=== PATIENT | male | born 1960 | race Caucasian/White ===

== ENCOUNTER → 2019-10-28 12:14 | Outpatient (BNVA) | payer OTHER, SELFPAY | PROVIDERS: PCP Nurse Practitioner Family; Visit Provider Nurse Practitioner Family | DX: E11.9 Type 2 diabetes mellitus without complications (principal); Z12.5 Encounter for screening for malignant neoplasm of prostate; I10 Essential (primary) hypertension; Z00.00 Encounter for general adult medical examination without abnormal findings; E78.5 Hyperlipidemia, unspecified; Z53.20 Procedure and treatment not carried out because of patient's decision for unspecified reasons; Z72.0 Tobacco use | CPT/HCPCS: 80053; 80061; 82044; 83036; 84443; 85025; G0103 ==

== ENCOUNTER → 2021-08-30 08:17 | Outpatient (BNVA) | payer BC, SELFPAY | PROVIDERS: PCP Nurse Practitioner; Visit Provider Nurse Practitioner | DX: C25.9 Malignant neoplasm of pancreas, unspecified (principal) | CPT/HCPCS: 80053; 85025; 86301 ==

== ENCOUNTER → 2021-10-18 09:06 | Outpatient (BNVA) | payer BC, SELFPAY | PROVIDERS: PCP Nurse Practitioner; Visit Provider Nurse Practitioner | DX: E11.65 Type 2 diabetes mellitus with hyperglycemia (principal); Z79.4 Long term (current) use of insulin; F41.1 Generalized anxiety disorder; I10 Essential (primary) hypertension | CPT/HCPCS: 81000; 83036 ==

== ENCOUNTER → 2022-01-16 08:34 | Outpatient (BNVA) | payer BC, SELFPAY | PROVIDERS: PCP Nurse Practitioner; Visit Provider Nurse Practitioner | DX: E11.65 Type 2 diabetes mellitus with hyperglycemia (principal); Z79.4 Long term (current) use of insulin; I10 Essential (primary) hypertension; F41.1 Generalized anxiety disorder; E55.9 Vitamin D deficiency, unspecified | CPT/HCPCS: 80053; 82306; 82607; 83036 ==

== ENCOUNTER 2022-02-28 08:09 | Outpatient (CLI) | payer BC, SELFPAY ==
[2022-02-28 08:57] LABS: Basophils % 0.7 %; Eosinophils # 0.1 10^3/uL (0.0-0.8); Eosinophils % 3.4 %; Hemoglobin 9.6 g/dL (11.7-16.6); Lymphocytes # 0.3 10^3/uL (0.8-4.8); Lymphocytes % 9.9 %; Mean Corpuscular Hemoglobin 29.7 pg (28.0-34.0); Mean Platelet Volume 9.8 fL (7.4-10.4); Monocytes # 0.1 10^3/uL (0.2-0.9); Monocytes % 2.7 %; Neutrophils # 2.41 10^3/uL (1.8-7.7); Neutrophils % 82.6 %; Nucleated Red Blood Cells % 0 %; Platelet Count 188 10^3/cmm (130-400); Red Blood Count 3.23 10^6/uL (4.1-5.3); Red Cell Distribution Width 13.4 % (12.1-15.1); White Blood Count 2.9 10^3/uL (4.0-10.0)
[2022-02-28 09:29] LABS: Alanine Aminotransferase 102 U/L (0-41); Albumin Level 3.2 g/dL (3.5-5.2); Alkaline Phosphatase 680 U/L (40-130); Anion Gap 8.9 (5-19); Aspartate Amino Transferase 74 U/L (0-40); Blood Urea Nitrogen 15 mg/dL (8-23); Calcium 8.5 mg/dL (8.5-10.5); Cancer Antigen 19 9 435.4 U/mL (0-35); Carbon Dioxide 32 mmol/L (22-29); Chloride 104 mmol/L (98-107); Globulin 2.9 g/dL (1.3-4.6); Glomerular Filtration Rate 167.9 mL/min (90-130); Glucose 127 mg/dL (65-115); Osmolality Calculated 294 mOsm/kg (285-295); Potassium 3.9 mmol/L (3.5-5.1); Sodium 141 mmol/L (136-145); Total Bilirubin 1.1 mg/dL (0.15-1.2); Total Protein 6.1 g/dL (6.6-8.7)
== END 2022-02-28 08:10 | disposition home or self-care (01) ==
LOC: LAB 08:14
PROVIDERS: PCP Nurse Practitioner; Visit Provider Internal Medicine Medical Oncology
DX: C25.9 Malignant neoplasm of pancreas, unspecified (principal); C78.7 Secondary malignant neoplasm of liver and intrahepatic bile duct
CPT/HCPCS: 36415; 80053; 85025; 86301

== ENCOUNTER 2022-03-07 07:59 | Outpatient (CLI) | payer BC, SELFPAY ==
[2022-03-07 09:05] LABS: Alanine Aminotransferase 96 U/L (0-41); Alkaline Phosphatase 725 U/L (40-130); Anion Gap 10.8 (5-19); Aspartate Amino Transferase 62 U/L (0-40); Blood Urea Nitrogen 16 mg/dL (8-23); Calcium 8.4 mg/dL (8.5-10.5); Carbon Dioxide 31 mmol/L (22-29); Chloride 101 mmol/L (98-107); Globulin 2.9 g/dL (1.3-4.6); Glomerular Filtration Rate 167.9 mL/min (90-130); Glucose 142 mg/dL (65-115); Osmolality Calculated 292 mOsm/kg (285-295); Potassium 3.8 mmol/L (3.5-5.1); Sodium 139 mmol/L (136-145); Total Protein 5.9 g/dL (6.6-8.7)
== END 2022-03-07 08:00 | disposition home or self-care (01) ==
LOC: LAB 08:01
PROVIDERS: PCP Nurse Practitioner; Visit Provider Internal Medicine Medical Oncology
DX: C25.9 Malignant neoplasm of pancreas, unspecified (principal); C78.7 Secondary malignant neoplasm of liver and intrahepatic bile duct
CPT/HCPCS: 36415; 80053

== ENCOUNTER → 2022-03-13 17:00 | Outpatient (BNVA) | payer BC, SELFPAY | PROVIDERS: PCP Nurse Practitioner; Visit Provider Nurse Practitioner | DX: R19.7 Diarrhea, unspecified (principal); E11.65 Type 2 diabetes mellitus with hyperglycemia; Z79.4 Long term (current) use of insulin | CPT/HCPCS: 80053; 81000; 85025 ==

== ENCOUNTER → 2022-03-23 17:01 | Outpatient (BNVA) | payer BC, SELFPAY | PROVIDERS: PCP Nurse Practitioner; Visit Provider Nurse Practitioner | DX: D64.9 Anemia, unspecified (principal) | CPT/HCPCS: 82270 ==

== ENCOUNTER 2022-03-24 17:30 | Oncology outpatient (recurring) (ONCR) | payer BC, SELFPAY ==
[2022-03-20 12:12] LABS: Basophils % 0.6 %; Eosinophils # 0.1 10^3/uL (0.0-0.8); Eosinophils % 1.1 %; Hematocrit 27.6 % (42.0-52.0); Hemoglobin 9.1 g/dL (11.7-16.6); Lymphocytes # 0.5 10^3/uL (0.8-4.8); Lymphocytes % 6.9 %; Mean Corpuscular Hemoglobin 31.1 pg (28.0-34.0); Mean Corpuscular Volume 94.2 fl (80-94); Monocytes # 0.7 10^3/uL (0.2-0.9); Monocytes % 9.3 %; Neutrophils # 5.75 10^3/uL (1.8-7.7); Neutrophils % 79.3 %; Nucleated Red Blood Cells % 0 %; Platelet Count 292 10^3/cmm (130-400); Red Blood Count 2.93 10^6/uL (4.1-5.3); Red Cell Distribution Width 14.9 % (12.1-15.1); White Blood Count 7.2 10^3/uL (4.0-10.0)
[2022-03-20 12:38] LABS: Alanine Aminotransferase 53 U/L (0-41); Albumin Level 2.7 g/dL (3.5-5.2); Alkaline Phosphatase 860 U/L (40-130); Anion Gap 9.8 (5-19); Aspartate Amino Transferase 45 U/L (0-40); Blood Urea Nitrogen 9 mg/dL (8-23); Calcium 8.2 mg/dL (8.5-10.5); Cancer Antigen 19 9 396.3 U/mL (0-35); Carbon Dioxide 27 mmol/L (22-29); Chloride 105 mmol/L (98-107); Globulin 2.5 g/dL (1.3-4.6); Glomerular Filtration Rate 217.3 mL/min (90-130); Glucose 145 mg/dL (65-115); Osmolality Calculated 287 mOsm/kg (285-295); Potassium 3.8 mmol/L (3.5-5.1); Sodium 138 mmol/L (136-145); Total Bilirubin 1.6 mg/dL (0.15-1.2); Total Protein 5.2 g/dL (6.6-8.7)
[2022-03-20 13:10] LABS: Carcinoembryonic Antigen 9.9 ng/mL (0.0-4.7)
[2022-03-24] MEDS: iohexol 350 mg/mL 100 mL Btl IV (16:54)
--- NOTE | 2022-03-24 17:30 | CTR_ITS ---
PROCEDURE INFORMATION: Exam: CT Abdomen And Pelvis With Contrast Exam date and time: 03/24/2022 4:40 PM Age: 61 years old Clinical indication: Prior chemotherapy - he underwent neoadjuvant chemotherapy with folfirinox. As of October 2021 he had completed 5 cycles of treatment. On 02/23/2022 he began cycle 1 of second line chemotherapy which gemcitabine/abraxane. 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 Follow-up oncological assessment; Additional info: Restaging TECHNIQUE: Imaging protocol: Computed tomography of the abdomen and pelvis with contrast. Radiation optimization: All CT scans at this facility use at least one of these dose optimization techniques: automated exposure control; mA and/or kV adjustment per patient size (includes targeted exams where dose is matched to clinical indication); or iterative reconstruction. Contrast material: OMNIPAQUE 350; Contrast volume: 95 ml; Contrast route: INTRAVENOUS (IV); Other contrast: Oral, Omnipaque 350, 30; COMPARISON: No relevant prior studies available. RADIATION DOSE METRICS: Total DLP (mGy-cm): 1186.83 FINDINGS: Lungs: Trace consolidation in the anterior basal segment of the left lower lobe favored to be atelectasis. Liver: The liver is normal in size and contour. Gallbladder and bile ducts: Pneumobilia noted. Biliary stent noted in place. Dense material noted within the biliary stent, likely reflux of oral contrast. Air within the gallbladder lumen. No signs of acute cholecystitis. Pancreas: The pancreas appears atrophic. Hypoattenuating mass measuring up to 2.6 cm in the head of the pancreas. Mild prominence of the pancreatic duct in the body measuring up to 4 mm in diameter. Spleen: The spleen appears normal. Adrenal glands: The adrenals appear normal. Kidneys and ureters: The kidneys enhance symmetrically and empty into non-dilated ureters. Stomach and bowel: Circumferential mucosal thickening in the duodenum. Appendix: Appendix is not readily identified. No signs of appendicitis. Intraperitoneal space: Small volume abdominopelvic ascites. 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 Mesenteric splenic vein collaterals noted. The splenic vein remains patent. The portal vein is patent. Lymph nodes: There are no enlarged lymph nodes. Urinary bladder: Urinary bladder is not well distended and demonstrates mild circumferential wall thickening, possibly due to nondistention. No significant surrounding inflammatory changes identified. Reproductive: Prostatic calcifications noted. The prostate is nonenlarged. The seminal vesicles are unremarkable. Bones/joints: Multilevel degenerative changes in the spine. Mild leftward curvature of the lumbar spine centered at L4. Soft tissues: Unremarkable. CT/CT abdomen pelvis w con* [id number] IMPRESSION: 1. No comparisons available. 2. Hypoattenuating pancreatic head mass measuring up to 2.6 cm. Mild prominence of the pancreatic duct in the body measuring up to 4 mm in diameter. 3. 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 4. Biliary stent noted in place. 5. No significant abdominopelvic lymphadenopathy identified. 6. Small volume abdominopelvic ascites.
== END 2022-03-24 23:59 | disposition home or self-care (01) ==
LOC: ONCMED 03-26 14:37
PROVIDERS: PCP Nurse Practitioner; Visit Provider Internal Medicine Medical Oncology
DX: C25.0 Malignant neoplasm of head of pancreas (principal)
CPT/HCPCS: 36591; 74177; 80053; 82378; 85025; 86301

== ENCOUNTER → 2022-05-22 12:15 | Outpatient (BNVA) | payer BC, SELFPAY | PROVIDERS: PCP Nurse Practitioner; Visit Provider Nurse Practitioner | DX: E11.65 Type 2 diabetes mellitus with hyperglycemia (principal); Z79.4 Long term (current) use of insulin; F41.1 Generalized anxiety disorder; R53.81 Other malaise; C25.0 Malignant neoplasm of head of pancreas; C78.7 Secondary malignant neoplasm of liver and intrahepatic bile duct | CPT/HCPCS: 80053; 83036; 85025 ==